=== PATIENT | female | born 1995 | race Caucasian/White ===

== ENCOUNTER 2016-06-07 11:10 | Emergency (ER) | payer MEDICAID ==
[2016-06-07 11:11] VITALS: BMI 31.8
[2016-06-07 11:40] VITALS: RESP 18; O2SAT 100
--- NOTE | 2016-06-07 13:46 | C.PDOC ---
History Of Present Illness 20 y/o female presents to the ED with complains of left knee pain which onset yesterday while playing with child, pt states she "heard a pop." Pain is worse with movement. Denies changes in sensation or any other injury. Pt also requesting test. No abdominal pain. No vaginal bleeding. Time Seen by Provider: 06/07/16 12:45 Chief Complaint (Nursing): Lower Extremity Problem/Injury History Per: Patient History/Exam Limitations: no limitations Onset/Duration Of Symptoms: Hrs Current Symptoms Are (Timing): Still Present Severity: Mild Recent travel outside of the [place] States: No Past Medical History Reviewed: Historical Data, Nursing Documentation, Vital Signs Vital Signs: Last Vital Signs Temp 97.9 F 06/07/16 14:16 Pulse 68 06/07/16 14:16 Resp 18 06/07/16 14:16 BP 118/65 06/07/16 14:16 Pulse Ox 100 06/07/16 14:16 - Medical History PMH: Asthma - [facility] Procedures MANUAL ASSIST DELIV NEC (12/08/14) REPAIR OB LACERATION NEC (12/08/14) Family History: States: Unknown Family Hx - Social History Hx Tobacco Use: Yes Hx Alcohol Use: No Hx Substance Use: No - Immunization History Hx Tetanus Toxoid Vaccination: No Hx Influenza Vaccination: No Hx Pneumococcal Vaccination: No Review Of Systems Except As Marked, All Systems Reviewed And Found Negative. Constitutional: Negative for: Fever Musculoskeletal: Positive for: Other (left knee pain) Neurological: Negative for: Weakness, Numbness Physical Exam - Physical Exam Appears: Non-toxic, No Acute Distress Skin: Warm, Dry, No Rash Head: Atraumatic, Normacephalic Eye(s): bilateral: Normal Inspection, EOMI Nose: Normal Oral Mucosa: Moist Chest: Symmetrical Respiratory: No Accessory Muscle Use Gastrointestinal/Abdominal: Soft, No Tenderness Extremity: Normal ROM, Tenderness (anterior left knee tenderness, full ROM), No Calf Tenderness, No Deformity, No Swelling Pulses: Left Dorsalis Pedis: Normal, Right Dorsalis Pedis: Normal Neurological/Psych: Oriented x3, Normal Motor, Normal Sensation ED Course And Treatment O2 Sat by Pulse Oximetry: 100 (on room air) Pulse Ox Interpretation: Normal Progress Note: Plan: XR knee, motrin. XR negative for fx or dislocation. Knee immobilizer applied by respiratory technician. Discharged home, instructed to follow up with ortho in 7-10 days if symptoms don't improve. Disposition - Disposition Referrals: Rohit Lewis III, MD [Staff Provider] - Disposition: HOME/ ROUTINE Disposition Time: 13:45 Condition: STABLE Additional Instructions: Follow up with your primary medical doctor or clinic in 2-5 days for further evaluation. Take medications as prescribed. Return to the emergency department at any time if symptoms persist or worsen. Prescriptions: Acetaminophen [Tylenol 325mg tab] 650 mg PO Q4 PRN #20 tab PRN Reason: Pain, Mild (1-3) Instructions: Knee Sprain (ED) - Clinical Impression Clinical Impression: Knee sprain - PA / CABIN SUPERVISOR / Resident Statement MD/DO has reviewed & agrees with the documentation as recorded. - Scribe Statement The provider has reviewed the documentation as recorded by the Scribramo Bustamante All medical record entries made by the Obedibramo were at my direction and personally dictated by me. I have reviewed the chart and agree that the record accurately reflects my personal performance of the history, physical exam, medical decision making, and the department course for this patient. I have also personally directed, reviewed, and agree with the discharge instructions and disposition.
[2016-06-07 14:17] VITALS: BP 118/65; PULSE 68; TEMP 97.9
--- NOTE | 2016-06-07 14:24 | RAD ---
PROCEDURE: Left knee 06/07/2016 HISTORY: Pain. COMPARISON: None. FINDINGS: BONES: Normal. No fracture. JOINTS: Normal. No osteoarthritis. JOINT EFFUSION: Trace suprapatellar joint effusion suspected. OTHER FINDINGS: None. IMPRESSION: Trace suprapatellar joint effusion suspected. .
== END 2016-06-07 14:17 | disposition home or self-care (01) ==
LOC: C.ER 11:10
DX: S83.92XA Sprain of unspecified site of left knee, initial encounter (principal); X58.XXXA Exposure to other specified factors, initial encounter

== ENCOUNTER 2016-07-13 11:14 | Emergency (ER) | payer MEDICAID ==
[2016-07-13 11:24] VITALS: BMI 24.6
[2016-07-13 11:25] VITALS: RESP 18; O2SAT 100
[2016-07-13] MEDS ORDERED: Albuterol 0.083% Inhal Sol (2.5 mg/3 mL) UD IH STA (11:43)
[2016-07-13] MEDS ORDERED: Sodium Chloride 0.9% 1,000 ML IV ONE (11:44)
[2016-07-13] MEDS ORDERED: DiphenhydrAMINE 50 mg/ml Inj IVP STA (11:44)
[2016-07-13] MEDS ORDERED: DiphenhydrAMINE 50 mg/ml Inj ONE (12:01)
[2016-07-13] MEDS ORDERED: Sodium Chloride 0.9% 1,000 ML ONE (12:01)
--- NOTE | 2016-07-13 12:10 | C.PDOC ---
History Of Present Illness 20 y/o female presents to the ED for evaluation of a headache which began 2 days ago. Patient describes her symptoms as "pressure-like" and associated with light sensitivity. Patient also states she has a history of asthma, currently complaining of wheezing. Patient denies fever/chills, visual change, dizziness, cough, nausea, vomiting, head injury, dizziness, facial droop, slurred speech. Time Seen by Provider: 07/13/16 11:29 Chief Complaint (Nursing): Headache History Per: Patient History/Exam Limitations: no limitations Onset/Duration Of Symptoms: Days (2) Current Symptoms Are (Timing): Still Present Severity: Moderate Quality: Aching, Pressure, "Pain" Associated Symptoms: Photophobia. denies: Nausea, Vomiting Additional History Per: Patient Past Medical History Reviewed: Historical Data, Nursing Documentation, Vital Signs Vital Signs: Last Vital Signs Temp 98.2 F 07/13/16 13:57 Pulse 90 07/13/16 13:57 Resp 18 07/13/16 13:57 BP 117/70 07/13/16 13:57 Pulse Ox 100 07/13/16 15:34 - Medical History PMH: Asthma, Migraine - [facility] Procedures MANUAL ASSIST DELIV NEC (12/08/14) REPAIR OB LACERATION NEC (12/08/14) Family History: States: No Known Family Hx - Social History Hx Tobacco Use: Yes Hx Alcohol Use: No Hx Substance Use: No - Immunization History Hx Tetanus Toxoid Vaccination: No Hx Influenza Vaccination: No Hx Pneumococcal Vaccination: No Review Of Systems Except As Marked, All Systems Reviewed And Found Negative. Constitutional: Negative for: Fever, Chills Eyes: Positive for: Other (+light sensitivity ) Cardiovascular: Negative for: Chest Pain, Palpitations Respiratory: Positive for: Wheezing. Negative for: Cough, Shortness of Breath Gastrointestinal: Negative for: Nausea, Vomiting, Abdominal Pain Musculoskeletal: Negative for: Neck Pain Skin: Negative for: Rash Neurological: Positive for: Headache. Negative for: Weakness, Numbness, Dizziness Physical Exam - Physical Exam Appears: Well, Non-toxic, Other (mild discomfort ) Skin: Normal Color, Warm, Dry, No Rash Head: Atraumatic, Normacephalic Eye(s): bilateral: Normal Inspection, PERRL, EOMI Oral Mucosa: Moist Neck: Normal, Normal ROM, No Midline Cervical Tenderness, No Paracervical Tenderness, No Step Off Deformity, Supple Cardiovascular: Rhythm Regular Respiratory: No Rales, No Rhonchi, Wheezing (mild, expiratory B/L) Gastrointestinal/Abdominal: Normal Exam, Bowel Sounds, Soft, No Tenderness, No Guarding, No Rebound Neurological/Psych: Oriented x3, Normal Speech, Normal Cognition, Normal Cranial Nerves, No Cerebellar Signs, Normal Motor, Normal Sensation Gait: Steady ED Course And Treatment O2 Sat by Pulse Oximetry: 100 (on RA) Pulse Ox Interpretation: Normal Progress Note: Patient given albuterol neb treatment, IV reglan + benadryl and IV NS bolus. 14:00- Patient reassessed, is resting comfortably, states she feels much better. On exam, she has good air entry B/L without wheezing or accessory muscle use. Headache has resolved. Patient given Rx for fiorecet, and was instructed to follow up with PMD in 1-2 days. She understands she should return to ED if symptoms worsen. Reevaluation Time: 13:15 Reassessment Condition: Improved (Patient reassessed, symptoms have improved but she is still having headache. IV toradol ordered.) Disposition Counseled Patient/Family Regarding: Diagnosis, Need For Followup, Rx Given - Disposition Referrals: Romelia Neal MD [Medical Doctor] - Disposition: HOME/ ROUTINE Disposition Time: 14:00 Condition: STABLE Additional Instructions: FOLLOW UP WITH DOCTOR IN 1-2 DAYS USE MEDICATION NEEDED RETURN TO ER IF SYMPTOMS WORSEN Prescriptions: Acetaminophen/Butalbital/Caf [Fioricet] 1 tab PO TID PRN #20 tab PRN Reason: Headache Albuterol HFA [Ventolin HFA 90 mcg/actuation (8 g)] 0.09 mg IH Q4 PRN #1 puff PRN Reason: Wheezing Instructions: Asthma (ED), Acute Headache (ED) Forms: General Discharge Instructions, Work Excuse Print Language: COMORAN - POA Present On Arrival: None - Clinical Impression Clinical Impression: Headache, Asthma - Scribe Statement The provider has reviewed the documentation as recorded by the Scribe (Shannon Hall) Provider Attestation: All medical record entries made by the Scribe were at my direction and personally dictated by me. I have reviewed the chart and agree that the record accurately reflects my personal performance of the history, physical exam, medical decision making, and the department course for this patient. I have also personally directed, reviewed, and agree with the discharge instructions and disposition.
[2016-07-13] MEDS ORDERED: Albuterol 0.083% Inhal Sol (2.5 mg/3 mL) UD ONE (12:13)
[2016-07-13 13:57] VITALS: BP 117/70; PULSE 90; TEMP 98.2
== END 2016-07-13 14:03 | disposition home or self-care (01) ==
LOC: C.ER 11:14
DX: J45.909 Unspecified asthma, uncomplicated (principal); R51 Headache; Z72.0 Tobacco use
CPT/HCPCS: 94150; 94640; 96361; 96374; 96375; 99285; J1200; J1885; J2765; J7040

== ENCOUNTER 2017-02-08 21:25 | Emergency (ER) | payer MEDICAID ==
[2017-02-08 21:25] VITALS: BMI 24.6
[2017-02-08 21:41] VITALS: BP 134/87; PULSE 98; RESP 20; TEMP 98.6; O2SAT 99
[2017-02-08] MEDS ORDERED: Amoxicillin-Clav 500-125 mg Tab PO STA (21:58)
[2017-02-08] MEDS ORDERED: Amoxicillin-Clav 500-125 mg Tab PO ONE (22:02)
--- NOTE | 2017-02-08 22:30 | C.PDOC ---
History Of Present Illness 21 year old female presents to the ER with a complaint of headache, sore throat , cough, and chest congestion for the past 2 days. Patient reports she ran out of her albuterol inhaler at home and has not taken anything for her symptoms. Denies fever or chills. Time Seen by Provider: 02/08/17 21:49 Chief Complaint (Nursing): ENT Problem History Per: Patient History/Exam Limitations: no limitations Onset/Duration Of Symptoms: Days Current Symptoms Are (Timing): Still Present Location Of Pain: Throat Sick Contacts (Context): None Associated Symptoms: Sore Throat, Cough, Nasal Congestion, Other (Headache). denies: Fever, Chills Ear Symptoms: Bilateral: None Recent travel outside of the [place]: No Past Medical History Reviewed: Historical Data, Nursing Documentation, Vital Signs Vital Signs: Last Vital Signs Temp 98.6 F 02/08/17 21:37 Pulse 98 H 02/08/17 21:37 Resp 20 02/08/17 21:37 BP 134/87 02/08/17 21:37 Pulse Ox 99 02/09/17 00:41 - Medical History PMH: Asthma, Migraine (denies) Surgical History: No Surg Hx - [facility] Procedures MANUAL ASSIST DELIV NEC (12/08/14) REPAIR OB LACERATION NEC (12/08/14) Family History: States: Unknown Family Hx - Social History Hx Tobacco Use: Yes Hx Alcohol Use: Yes Hx Substance Use: No - Immunization History Hx Tetanus Toxoid Vaccination: Yes Hx Influenza Vaccination: No Hx Pneumococcal Vaccination: No Review Of Systems Constitutional: Negative for: Fever, Chills ENT: Positive for: Nose Congestion, Throat Pain Respiratory: Positive for: Cough Neurological: Positive for: Headache Physical Exam - Physical Exam Appears: Non-toxic, No Acute Distress Skin: Normal Color, Warm, Dry Head: Atraumatic, Normacephalic Eye(s): bilateral: Normal Inspection, PERRL Ear(s): Bilateral: Normal Oral Mucosa: Moist Throat: No Erythema, No Exudate, No Drooling, Other (Enlarged erythematous tonsils) Neck: Normal, Supple Lymphatic: Other (Tender submandibular nodes) Chest: Symmetrical Cardiovascular: Rhythm Regular Respiratory: Normal Breath Sounds, No Rales, No Rhonchi, No Wheezing Gastrointestinal/Abdominal: Soft, No Tenderness Neurological/Psych: Oriented x3, Normal Speech ED Course And Treatment O2 Sat by Pulse Oximetry: 99 (Room air) Pulse Ox Interpretation: Normal Progress Note: Motrin administered for pain. Patient started on augmentin and instructed to follow up with PMD in 1-2 days or return to ER if symptoms worsen. Disposition - Disposition Referrals: Romelia Neal MD [Primary Care Provider] - Disposition: HOME/ ROUTINE Disposition Time: 22:26 Condition: STABLE Additional Instructions: Please follow up with PMD Gargle with warm salt water Take meds as directed Prescriptions: Albuterol HFA [Ventolin HFA 90 mcg/actuation (8 g)] 2 puff IH [id number] #1 inh Amoxicillin 500 mg PO TID #20 tab Cetirizine HCl [Zyrtec] 10 mg PO DAILY #14 capsule Ibuprofen [Motrin] 600 mg PO Q6H #20 tab Instructions: Upper Respiratory Infection in Children (ED) Forms: [facility] (Arabic) - Clinical Impression Clinical Impression: Upper respiratory infection - Scribe Statement The provider has reviewed the documentation as recorded by the Scribe Daniel Payne All medical record entries made by the Scribe were at my direction and personally dictated by me. I have reviewed the chart and agree that the record accurately reflects my personal performance of the history, physical exam, medical decision making, and the department course for this patient. I have also personally directed, reviewed, and agree with the discharge instructions and disposition.
== END 2017-02-08 22:39 | disposition home or self-care (01) ==
LOC: C.ER 21:25 → SUPCPDRO 21:25 → C.ER 22:39
DX: J06.9 Acute upper respiratory infection, unspecified (principal); F17.210 Nicotine dependence, cigarettes, uncomplicated

== ENCOUNTER 2017-04-28 18:04 | Emergency (ER) | payer MEDICAID ==
[2017-04-28 18:04] VITALS: BMI 24.6
[2017-04-28 18:22] VITALS: BP 106/67; PULSE 66; RESP 20; TEMP 98.6; O2SAT 100
--- NOTE | 2017-04-28 19:19 | C.PDOC ---
History Of Present Illness 21 year old female presents to the ER with a complaint of right shoulder pain for the past 4 days. Patient states the pain is from the shoulder down the anterior arm. She reports she was told he had a problem with her thyroid 2 years ago when but never followed up. Denies known injury, numbness, tingling, wrist pain, elbow pain, or neck pain. Time Seen by Provider: 04/28/17 19:06 Chief Complaint (Nursing): Upper Extremity Problem/Injury History Per: Patient History/Exam Limitations: no limitations Onset/Duration Of Symptoms: Days Current Symptoms Are (Timing): Still Present Exacerbating Factor(s): Strenuous Use Of Affected Area Recent travel outside of the [place]: No Past Medical History Reviewed: Historical Data, Nursing Documentation, Vital Signs Vital Signs: Last Vital Signs Temp 98.6 F 04/28/17 18:21 Pulse 66 04/28/17 18:21 Resp 20 04/28/17 21:17 BP 106/67 04/28/17 18:21 Pulse Ox 100 04/28/17 20:39 - Medical History PMH: Asthma, Migraine (denies) - [facility] [employer] [facility] Procedures MANUAL ASSIST DELIV NEC (12/08/14) REPAIR OB LACERATION NEC (12/08/14) Family History: States: Unknown Family Hx - Social History Hx Tobacco Use: Yes Hx Alcohol Use: Yes Hx Substance Use: No - Immunization History Hx Tetanus Toxoid Vaccination: Yes Hx Influenza Vaccination: No Hx Pneumococcal Vaccination: No Review Of Systems Musculoskeletal: Positive for: Shoulder Pain, Arm Pain. Negative for: Neck Pain Neurological: Negative for: Numbness, Other (Tingling) Physical Exam - Physical Exam Appears: Non-toxic, No Acute Distress Skin: Normal Color, Warm, Dry Head: Atraumatic, Normacephalic Eye(s): bilateral: Normal Inspection Oral Mucosa: Moist Neck: Normal, No Midline Cervical Tenderness, No Paracervical Tenderness, Supple Back: Paraspinal Tenderness (Right trapezius tenderness) Extremity: Normal ROM (x4), Tenderness (Right anterior and lateral shoulder. Right bicipital tendon.), Capillary Refill (<2 seconds), No Deformity, No Swelling Pulses: Left Dorsalis Pedis: Normal, Right Dorsalis Pedis: Normal Neurological/Psych: Oriented x3, Normal Speech, Normal Motor, Normal Sensation ED Course And Treatment O2 Sat by Pulse Oximetry: 100 (room air) Pulse Ox Interpretation: Normal Medical Decision Making Medical Decision Making: Right shoulder x-ray ordered. 834 pm no fx or dislocation noted on xray, will d/c with nsaids and ortho f/u Disposition Counseled Patient/Family Regarding: Studies Performed, Diagnosis, Need For Followup, Rx Given - Disposition Referrals: Alexsander Pierre MD [Staff Provider] - Romelia Neal MD [Medical Doctor] - Disposition: HOME/ ROUTINE Disposition Time: 20:36 Condition: STABLE Additional Instructions: Please take Ibuprofen as prescribed for pain. Cold compresses to shoulder area several times a day. Please follow up with your primary care doctor for a check up. Follow up with orthopedics for your shoulder if not better in a few days. Prescriptions: Ibuprofen [Motrin] 600 mg PO TID #30 tab Instructions: Shoulder Pain (ED) Forms: [facility] (Turkmen), General Discharge Instructions - Clinical Impression Clinical Impression: Acute pain of right shoulder - PA / VERIFICATION ENGINEER / Resident Statement MD/DO has reviewed & agrees with the documentation as recorded. - Scribe Statement The provider has reviewed the documentation as recorded by the Scribe Daniel Payne
--- NOTE | 2017-04-29 08:26 | RAD ---
PROCEDURE: Radiographs of the Right Shoulder HISTORY: pain, dec rom COMPARISON: Chest x-ray performed 07/14/16 FINDINGS: BONES: No acute displaced fracture. The distal clavicle and underlying ribs appear intact. JOINTS: No acute dislocation. SOFT TISSUES: Soft tissues appear unremarkable. No evidence of radiopaque foreign body. IMPRESSION: No acute displaced fracture or dislocation evident. If symptoms persist or if there is continued clinical concern, x-ray follow-up in 7-10 days should be considered.
== END 2017-04-28 21:17 | disposition home or self-care (01) ==
LOC: C.ER 18:04
DX: M25.511 Pain in right shoulder (principal)

== ENCOUNTER 2017-10-06 11:11 | Emergency (ER) | payer MEDICAID ==
[2017-10-06 11:11] VITALS: BMI 24.6
[2017-10-06 12:00] LABS: HCG,QUALITATIVE URINE NEGATIVE (NEGATIVE)
[2017-10-06 12:25] LABS: SQUAMOUS EPITHIAL 4 /hpf (0-5); URINE BILIRUBIN NEGATIVE (NEGATIVE); URINE BLOOD NEGATIVE (NEGATIVE); URINE CLARITY Clear (Clear); URINE COLOR Yellow (YELLOW); URINE GLUCOSE (UA) NORMAL (Normal); URINE LEUKOCYTE ESTERASE NEG Leu/uL (Negative); URINE PROTEIN NEGATIVE (NEGATIVE); URINE UROBILINOGEN NORMAL mg/dL (0.2-1.0)
--- NOTE | 2017-10-06 12:54 | C.PDOC ---
History Of Present Illness 22yo female w/o significant PMHx comes to ER for complaints of left groin pain present intermittently x 2 weeks. She reports the pain is sharp, localized, non- radiating, worse with movement. Contrary to triage, patient denies fever, chills , recent illness, sore throat, cough, CP, SOB, abd. pain, N/V/D, denies dysuria , hematuria, back pain, vaginal irritation or discharges. Ambulate to Ed for evaluation, not in any apparent distress. Time Seen by Provider: 10/06/17 11:25 Chief Complaint (Nursing): Abdominal Pain History Per: Patient History/Exam Limitations: no limitations Onset/Duration Of Symptoms: Persistent (x 2 weeks) Current Symptoms Are (Timing): Still Present Location Of Pain/Discomfort: Other (left groin) Quality Of Discomfort: "Pain" Associated Symptoms: denies: Fever, Chills, Nausea, Vomiting, Diarrhea, Loss Of Appetite, Back Pain, Chest Pain, Constipation, Urinary Symptoms Additional History Per: Patient Abnormal Vaginal Bleeding: No Past Medical History Reviewed: Historical Data, Nursing Documentation, Vital Signs Vital Signs: Last Vital Signs Temp 98.0 F 10/06/17 13:26 Pulse 75 10/06/17 13:26 Resp 18 10/06/17 13:26 BP 129/85 10/06/17 13:26 Pulse Ox 100 10/06/17 13:26 - Medical History PMH: Asthma, Migraine (denies) Surgical History: No Surg Hx - [facility] Procedures MANUAL ASSIST DELIV NEC (12/08/14) REPAIR OB LACERATION NEC (12/08/14) Family History: States: Unknown Family Hx - Social History Hx Tobacco Use: Yes Hx Alcohol Use: Yes Hx Substance Use: Yes - Immunization History Hx Tetanus Toxoid Vaccination: Yes Hx Influenza Vaccination: No Hx Pneumococcal Vaccination: No Review Of Systems Except As Marked, All Systems Reviewed And Found Negative. Constitutional: Negative for: Fever, Chills Cardiovascular: Negative for: Chest Pain Respiratory: Negative for: Shortness of Breath Gastrointestinal: Positive for: Other (left sided groin pain). Negative for: Nausea, Vomiting, Abdominal Pain, Diarrhea Genitourinary: Negative for: Dysuria, Frequency, Hematuria Musculoskeletal: Negative for: Back Pain Physical Exam - Physical Exam Appears: Well, Non-toxic, No Acute Distress Skin: Normal Color, Warm, Dry Head: Normacephalic Eye(s): bilateral: PERRL Nose: No Flaring, No Discharge Oral Mucosa: Moist Throat: No Erythema, No Drooling Neck: Normal ROM, Trachea Midline, Supple Chest: Symmetrical Cardiovascular: Rhythm Regular, No Murmur, No JVD Respiratory: No Decreased Breath Sounds, No Accessory Muscle Use, No Stridor, No Wheezing Gastrointestinal/Abdominal: Soft, No Tenderness, No Distention, No Guarding, Other (left sided groin tenderness overlying ligament. no edmea, no erythema, no palpable deformity.) Back: No CVA Tenderness, No Vertebral Tenderness, No Paraspinal Tenderness Extremity: Normal ROM, No Deformity, No Swelling Neurological/Psych: Oriented x3, Normal Speech ED Course And Treatment O2 Sat by Pulse Oximetry: 99 (RA) Pulse Ox Interpretation: Normal - CT Scan/US Transvaginal Other Rad Studies (CT/US): Radiology Report Reviewed CT/US Interpretation: Refinery Operator Assistant : Gloria Benavidez MD. Approver2 : Report Date : 10/06/2017 14:43:01. My Comment : . Date of service: 10/06/2017. HISTORY: Left groin pain. COMPARISON: None available. TECHNIQUE: Trans abdominal and transvaginal pelvic ultrasound was performed. FINDINGS: UTERUS: Measures 8.2 x 2.7 x 3.5 cm anteverted, normal in size and appearance. No fibroid or other mass lesion seen. ENDOMETRIUM: Measures 5.0 mm in diameter. An intrauterine device remains in customary position. CERVIX: No cervical abnormality identified. RIGHT OVARY: Measures 2.8 x 2.2 x 2.2 cm. No solid mass. Normal flow. LEFT OVARY: Measures 2.8 x 2.5 x 1.9 cm. No solid mass. Normal flow. There is a 1.3 x 1.2 x 1.3 cm cyst. FREE FLUID: No significant free fluid noted. OTHER FINDINGS: No sonographic abnormality in the left groin. IMPRESSION: Intrauterine device remains in customary position. Normal pelvic ultrasound. No sonographic abnormality in the left groin. Progress Note: Urinalysis, US Pelvis/Transvag ordered. Patient given Tramadol 50 mg PO for pain relief. On re-evaluation, pt is afebrile, hemodynamicaly stable. NOn-toxic. ENT: no acute finidngs. Abd: benign, (-) guarding, (-) rebound. back: (-) CVA tenderness. Neuorlogicaly intact. UA results review and appears normal. Preg (-). US results review: no acute abnormalities noted. Pt has clinical finidngs c/w left groin tenderness r/o strain. Pt advised. ref. to f/u with PMD, ADAPTIVE PHYSICAL EDUCATION TEACHER in 2-3 days for re-eavl. return to ED if any worsening or new changes. Disposition Counseled Patient/Family Regarding: Studies Performed, Diagnosis, Need For Followup, Rx Given - Disposition Referrals: Romelia Neal MD [Medical Doctor] - Disposition: HOME/ ROUTINE Disposition Time: 13:40 Condition: STABLE Additional Instructions: Light duty, avoid physical activity, heavy lifting, etc for 1-2 weeks Take pain medication as need Follow up with PMD, ADAPTIVE PHYSICAL EDUCATION TEACHER in 2-3 days for re-evaluation. return to ED if any worsening or new changes. Prescriptions: traMADol [Ultram] 50 mg PO TID #7 tab Instructions: Groin Strain Forms: [facility] (Indonesian) - Clinical Impression Clinical Impression: Groin strain - PA / COMMAND CENTER ANALYST / Resident Statement MD/DO has reviewed & agrees with the documentation as recorded. - Scribe Statement The provider has reviewed the documentation as recorded by the Adelina Meraz Provider Attestation: All medical record entries made by the Adelina were at my direction and personally dictated by me. I have reviewed the chart and agree that the record accurately reflects my personal performance of the history, physical exam, medical decision making, and the department course for this patient. I have also personally directed, reviewed, and agree with the discharge instructions and disposition.
[2017-10-06 13:27] VITALS: BP 129/85; PULSE 75; RESP 18; TEMP 98
[2017-10-06 14:04] VITALS: O2SAT 99
--- NOTE | 2017-10-06 14:44 | US ---
Date of service: 10/06/2017 HISTORY: Left groin pain COMPARISON: None available. TECHNIQUE: Trans abdominal and transvaginal pelvic ultrasound was performed. FINDINGS: UTERUS: Measures 8.2 x 2.7 x 3.5 cm anteverted, normal in size and appearance. No fibroid or other mass lesion seen. ENDOMETRIUM: Measures 5.0 mm in diameter. An intrauterine device remains in customary position. CERVIX: No cervical abnormality identified. RIGHT OVARY: Measures 2.8 x 2.2 x 2.2 cm. No solid mass. Normal flow. LEFT OVARY: Measures 2.8 x 2.5 x 1.9 cm. No solid mass. Normal flow. There is a 1.3 x 1.2 x 1.3 cm cyst. FREE FLUID: No significant free fluid noted. OTHER FINDINGS: No sonographic abnormality in the left groin. IMPRESSION: Intrauterine device remains in customary position. Normal pelvic ultrasound. No sonographic abnormality in the left groin.
== END 2017-10-06 14:11 | disposition home or self-care (01) ==
LOC: C.ER 11:11
DX: S39.011A Strain of muscle, fascia and tendon of abdomen, initial encounter (principal); X58.XXXA Exposure to other specified factors, initial encounter; Y92.9 Unspecified place or not applicable

== ENCOUNTER 2017-12-22 21:52 | Emergency (ER) | payer SELFPAY ==
[2017-12-22 21:57] VITALS: BMI 24.6
--- NOTE | 2017-12-22 23:05 | C.PDOC ---
History Of Present Illness 22 year old female presents to the ER with a complaint of a intermittent severe headache associated with mild photophobia. Patient took motrin [employer]ING [employer] with no relief. Denies neck pain or fever. History Per: Patient History/Exam Limitations: no limitations Onset/Duration Of Symptoms: Hrs Current Symptoms Are (Timing): Still Present Preceeding Symptoms: None Associated Symptoms: Photophobia (Mild). denies: Blurred Vision, Nausea, Vomiting, Extremity Weakness Recent travel outside of the [place]: No Past Medical History Reviewed: Historical Data, Nursing Documentation, Vital Signs - Medical History PMH: Asthma, Migraine (denies) - [facility] Procedures MANUAL ASSIST DELIV NEC (12/08/14) REPAIR OB LACERATION NEC (12/08/14) Family History: States: Unknown Family Hx - Social History Hx Tobacco Use: Yes Hx Alcohol Use: Yes Hx Substance Use: Yes - Immunization History Hx Tetanus Toxoid Vaccination: Yes Hx Influenza Vaccination: No Hx Pneumococcal Vaccination: No Review Of Systems Constitutional: Negative for: Fever, Chills Eyes: Negative for: Vision Change Cardiovascular: Negative for: Chest Pain, Palpitations Respiratory: Negative for: Cough, Shortness of Breath Gastrointestinal: Negative for: Nausea, Vomiting Neurological: Positive for: Headache, Other (Mild photophobia) Physical Exam - Physical Exam Appears: Non-toxic, Other (Moderate distress) Skin: Normal Color, Warm, Dry Head: Atraumatic, Normacephalic Eye(s): bilateral: Normal Inspection, PERRL, EOMI, Other (Mild photophobia) Nose: Normal Oral Mucosa: Moist Neck: Normal, Supple, No Other (Nuchal rigidity) Chest: Symmetrical, No Tenderness Cardiovascular: Rhythm Regular Respiratory: Normal Breath Sounds, No Rales, No Rhonchi, No Wheezing Gastrointestinal/Abdominal: Soft, No Tenderness Extremity: Normal ROM (x4) Neurological/Psych: Oriented x3, Normal Speech, Normal Motor, Normal Sensation Gait: Steady Disposition Counseled Patient/Family Regarding: Diagnosis, Need For Followup - Disposition Disposition: HOME/ ROUTINE Disposition Time: 22:10 Condition: STABLE - POA Present On Arrival: None - Clinical Impression Clinical Impression: Headache - Scribe Statement The provider has reviewed the documentation as recorded by the Scribe Daniel Payne All medical record entries made by the Obedibramo were at my direction and personally dictated by me. I have reviewed the chart and agree that the record accurately reflects my personal performance of the history, physical exam, medical decision making, and the department course for this patient. I have also personally directed, reviewed, and agree with the discharge instructions and disposition.
== END 2017-12-22 22:00 | disposition home or self-care (01) ==
LOC: C.ER 21:52
DX: R51 Headache (principal)

== ENCOUNTER 2018-01-31 21:09 | Emergency (ER) | payer MEDICAID ==
[2018-01-31 21:09] VITALS: BMI 24.6
[2018-01-31 21:17] VITALS: PULSE 102; RESP 20; TEMP 98.6; O2SAT 97
--- NOTE | 2018-01-31 21:48 | C.PDOC ---
History Of Present Illness 22 year old female with a Hx of asthma presents to the ER with a complaint of cough, SOB, and chest tightness for the past month. She has been using her albuterol inhaler twice a day with no relief. Denies fever, chills, chest pain. Time Seen by Provider: 01/31/18 21:18 Chief Complaint (Nursing): Cough, Cold, Congestion History Per: Patient History/Exam Limitations: no limitations Onset/Duration Of Symptoms: Days Current Symptoms Are (Timing): Still Present Associated Symptoms: Cough, Other (SOB, Chest tightness). denies: Fever, Chills Ear Symptoms: Bilateral: None Recent travel outside of the [place]: No Past Medical History Reviewed: Historical Data, Nursing Documentation, Vital Signs Vital Signs: Last Vital Signs Temp 98.6 F 01/31/18 21:14 Pulse 102 H 01/31/18 21:14 Resp 20 01/31/18 21:14 BP Pulse Ox 97 01/31/18 21:14 - Medical History PMH: Asthma, Migraine (denies) - [facility] Procedures MANUAL ASSIST DELIV NEC (12/08/14) REPAIR OB LACERATION NEC (12/08/14) Family History: States: Unknown Family Hx - Social History Hx Tobacco Use: Yes Hx Alcohol Use: Yes Hx Substance Use: No - Immunization History Hx Tetanus Toxoid Vaccination: Yes Hx Influenza Vaccination: No Hx Pneumococcal Vaccination: No Review Of Systems Constitutional: Negative for: Fever, Chills ENT: Negative for: Throat Pain Respiratory: Positive for: Cough, Shortness of Breath, Other (Chest tightness) Physical Exam - Physical Exam Appears: Non-toxic Skin: Normal Color, Warm, Dry Head: Atraumatic, Normacephalic Eye(s): bilateral: Normal Inspection Ear(s): Bilateral: Normal Oral Mucosa: Moist Throat: Normal, No Erythema, No Exudate Chest: Symmetrical, No Tenderness Cardiovascular: Rhythm Regular Respiratory: Decreased Breath Sounds (Minimal), No Rales, No Rhonchi, Wheezing (Expiratory) Neurological/Psych: Oriented x3, Normal Speech ED Course And Treatment O2 Sat by Pulse Oximetry: 97 (Room air) Pulse Ox Interpretation: Normal Progress Note: Albuterol nebulizer and prednisone administered. Patient is resting comfortably in the ER in no acute respiratory distress, vitals are stable, will discharge home with Rx and instructions to follow up with PMD or return if symptoms worsen. 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 - Scribe Statement The provider has reviewed the documentation as recorded by the Scribramo Payne All medical record entries made by the Obedibramo were at my direction and personally dictated by me. I have reviewed the chart and agree that the record accurately reflects my personal performance of the history, physical exam, medical decision making, and the department course for this patient. I have also personally directed, reviewed, and agree with the discharge instructions and disposition.
[2018-01-31] MEDS ORDERED: Albuterol 0.083% Inhal Sol (2.5 mg/3 mL) UD ONE (21:53)
[2018-01-31] MEDS: Albuterol 0.083% Inhal Sol (2.5 mg/3 mL) UD INH SCH ×2 (21:56→22:25)
== END 2018-01-31 22:50 | disposition home or self-care (01) ==
LOC: C.ER 21:09
DX: J45.909 Unspecified asthma, uncomplicated (principal); Z72.0 Tobacco use

== ENCOUNTER 2018-04-22 16:20 | Emergency (ER) | payer MEDICAID ==
[2018-04-22 16:20] VITALS: BMI 24.6
[2018-04-22 16:45] VITALS: RESP 16
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
[2018-04-22 18:12] VITALS: BP 121/60; PULSE 82; TEMP 98.9; O2SAT 100
== END 2018-04-22 18:33 | disposition home or self-care (01) ==
LOC: C.ER 16:20
DX: S09.90XA Unspecified injury of head, initial encounter (principal); S09.93XA Unspecified injury of face, initial encounter; Y09 Assault by unspecified means; Z72.0 Tobacco use